=== PATIENT | female | born 1965 | race Caucasian/White ===

== ENCOUNTER 2018-05-12 04:13 | Inpatient (IN) | payer MEDICARE, MEDICAID ==
[~2018-05-12] VITALS: Ht 154.9 cm; Wt 58.3 kg
[~2018-05-12 04:13] MED LIST: LANTUS; LISINOPRIL; LOPID; NOVOLIN; SIMVASTATIN
[2018-05-12 05:22] LABS: HEMATOCRIT. 36.6 % (36.0-48.0); HEMOGLOBIN. 12.3 g/dL (12.0-16.0); MEAN CORPUSCULAR HEMOGLOBIN 31.7 pg (28.0-32.0); MEAN CORPUSCULAR VOLUME 94.8 fL (81.0-99.0); PLATELET 175 x1000/uL (130-400); RED BLOOD CELL COUNT 3.87 mill/uL (4.2-5.4); RED CELL DISTRIBUTION WIDTH 14.4 % (11.6-14.6)
[2018-05-12 05:23] LABS: INR 1.1; PROTHROMBIN TIME 10.7 sec (9.1-11.1)
[2018-05-12] MEDS ORDERED: VANCOMYCIN 1 G PREMIX 200 ML IV ONE (05:30)
[2018-05-12] MEDS ORDERED: PIPERACILLIN/TAZ 3.375G PREMIX 50 ML IV ONE (05:30)
[2018-05-12 05:34] LABS: CHLORIDE 96 mEq/L (98-107)
[2018-05-12 06:56] LABS: ATYPICAL LYMPHOCYTES 2; PLATELET ESTIMATE NORMAL
[2018-05-12 10:22] LABS: CLARITY URINE CLOUDY (CLEAR); COLOR URINE YELLOW (YELLOW); KETONES URINE NEGATIVE (NEGATIVE); LEUKOCYTE ESTERASE URINE 2+ (NEGATIVE); NITRITE URINE NEGATIVE (NEGATIVE); OCCULT BLOOD URINE 2+ (NEGATIVE); PH URINE 6.5 (4.5-8.0); PROTEIN URINE 3+ (NEGATIVE); SPECIFIC GRAVITY URINE 1.015 (1.005-1.030); UROBILINOGEN URINE 0.2 E.U./dL (0.2-1.0)
[2018-05-12] MEDS ORDERED: DOCUSATE SODIUM 100MG CAPSULE PO PRN (10:45)
[2018-05-12] MEDS ORDERED: ACETAMINOPHEN 325MG TABLET PO PRN (10:45)
[2018-05-12] MEDS ORDERED: ONDANSETRON HCL 4MG/2ML INJ IV PRN (10:45)
[2018-05-12] MEDS ORDERED: HYDROCODONE/ACETAMINOPHEN 5/325MG TABLET PO PRN (10:45)
[2018-05-12] MEDS ORDERED: IPRATROPIUM/ALBUTEROL 0.5-3(2.5)MG/3ML NEB INH PRN (10:45)
[2018-05-12 11:05] LABS: *BARBITURATES SCREEN URINE NEGATIVE (NEGATIVE); *BENZODIAZEPINES SCREEN URINE NEGATIVE (NEGATIVE); *COCAINE SCREEN URINE NEGATIVE (NEGATIVE); CANNABINOID URINE SCREEN NEGATIVE (NEGATIVE)
[2018-05-12 11:06] LABS: *AMPHETAMINES SCREEN URINE NEGATIVE (NEGATIVE); PHENCYCLIDINE URINE SCREEN NEGATIVE (NEGATIVE)
[2018-05-12 11:13] LABS: OPIATES URINE SCREEN NEGATIVE (NEGATIVE)
[2018-05-12 11:16] LABS: METHADONE URINE SCREEN NEGATIVE (NEGATIVE)
[2018-05-12 11:57] LABS: HEPATITIS B SURFACE ANTIGEN NEGATIVE
[2018-05-12 12:27] LABS: HEPATITIS A AB IGM NEGATIVE (NEGATIVE)
[2018-05-12] MEDS: CLONIDINE 0.1MG TABLET PO PRN (14:51)
[2018-05-12] MEDS: LORAZEPAM 0.5MG TABLET PO PRN ×2 (14:51→22:54)
[2018-05-12] MEDS ORDERED: AMLODIPINE 5MG TABLET PO NR (21:30)
[2018-05-13] VITALS (10 sets, daily range): BP systolic 134–181; BP diastolic 66–80
[2018-05-13] MEDS: CLONIDINE 0.1MG TABLET PO PRN ×2 (00:01→21:27)
[2018-05-13] MEDS ORDERED: GENTAMICIN 80MG PREMIX 100 ML IV NR ×2 (04:30→12:00)
[2018-05-13 06:55] LABS: HEMATOCRIT. 31.4 % (36.0-48.0); HEMOGLOBIN. 10.4 g/dL (12.0-16.0); MEAN CORPUSCULAR HEMOGLOBIN 31.2 pg (28.0-32.0); MEAN CORPUSCULAR VOLUME 93.9 fL (81.0-99.0); MEAN PLATELET VOLUME 9.2 fl (7.4-10.4); PLATELET 187 x1000/uL (130-400); RED BLOOD CELL COUNT 3.35 mill/uL (4.2-5.4); RED CELL DISTRIBUTION WIDTH 14.6 % (11.6-14.6)
[2018-05-13 07:36] LABS: PLATELET ESTIMATE NORMAL
[2018-05-13] MEDS ORDERED: DEXTROSE 50% WATER 50ML SYRINGE IV PRN (08:45)
[2018-05-13] MEDS: BLOOD SUGAR DIAGNOSTIC STRIP TEST SCH ×3 (11:50→21:14)
[2018-05-13] MEDS ORDERED: INSULIN LISPRO 100 UNITS/ML SUBCUT SCH (12:20)
[2018-05-13] MEDS: AMLODIPINE 5MG TABLET PO SCH (16:11)
[2018-05-13] MEDS: INSULIN LISPRO 100 UNITS/ML SUBCUT SCH ×2 (16:49→21:25)
[2018-05-13] MEDS: INSULIN GLARGINE UD 100 UNITS/ML SYR SUBCUT SCH (21:26)
[2018-05-14] VITALS (16 sets, daily range): BP systolic 112–180; BP diastolic 55–89
[2018-05-14] MEDS: INSULIN LISPRO 100 UNITS/ML SUBCUT SCH ×4 (06:33→20:36)
[2018-05-14] MEDS: BLOOD SUGAR DIAGNOSTIC STRIP TEST SCH ×4 (06:33→20:21)
[2018-05-14 07:30] LABS: HEMATOCRIT. 33.3 % (36.0-48.0); HEMOGLOBIN. 11.3 g/dL (12.0-16.0); MEAN CORPUSCULAR HEMOGLOBIN 31.5 pg (28.0-32.0); MEAN CORPUSCULAR VOLUME 92.5 fL (81.0-99.0); MEAN PLATELET VOLUME 9.3 fl (7.4-10.4); PLATELET 179 x1000/uL (130-400); RED CELL DISTRIBUTION WIDTH 14.7 % (11.6-14.6)
[2018-05-14 07:52] LABS: GENTAMICIN RANDOM 1.2 ug/mL
[2018-05-14] MEDS: INSULIN GLARGINE UD 100 UNITS/ML SYR SUBCUT SCH ×2 (09:14→20:42)
[2018-05-14] MEDS: AMLODIPINE 5MG TABLET PO SCH (09:14)
[2018-05-14 10:33] LABS: PLATELET ESTIMATE NORMAL
[2018-05-14] MEDS ORDERED: GENTAMICIN 80MG PREMIX 100 ML IV NR (20:00)
[2018-05-14] MEDS: CLONIDINE 0.1MG TABLET PO PRN (20:36)
== END 2018-05-14 22:52 | disposition home or self-care (01) | DRG 871 ==
LOC: ER 04:31 → EDBEDREQTM 05:46 → EDBEDREQ 05:46 → 3WST 05-13 05:38 → ENRESERV 05-13 07:00
PROVIDERS: ADMIT Internal Medicine; ATTEND Internal Medicine
PROC: 5A1D70Z Performance of Urinary Filtration, Intermittent, Less than 6 Hours Per Day (ICD-10-PCS; 2018-05-12)
PROC: 5A1D70Z Performance of Urinary Filtration, Intermittent, Less than 6 Hours Per Day (ICD-10-PCS; principal; 2018-05-13)
DX: A41.9 Sepsis, unspecified organism (principal); N18.6 End stage renal disease; G93.40 Encephalopathy, unspecified; I13.2 Hypertensive heart and chronic kidney disease with heart failure and with stage 5 chronic kidney disease, or end stage renal disease; I50.42 Chronic combined systolic (congestive) and diastolic (congestive) heart failure; E87.1 Hypo-osmolality and hyponatremia; E87.2 Acidosis; N39.0 Urinary tract infection, site not specified; E11.649 Type 2 diabetes mellitus with hypoglycemia without coma; E87.5 Hyperkalemia; D72.1 Eosinophilia; E78.5 Hyperlipidemia, unspecified; D64.9 Anemia, unspecified; E11.22 Type 2 diabetes mellitus with diabetic chronic kidney disease; E78.00 Pure hypercholesterolemia, unspecified; Z79.4 Long term (current) use of insulin; Z99.2 Dependence on renal dialysis; R74.0 Nonspecific elevation of levels of transaminase and lactic acid dehydrogenase [LDH]
CPT/HCPCS: 36415; 70551; 71045; 80048; 80061; 80076; 80170; 80305; 80307; 80329; 82140; 82962; 83036; 83605; 84145; 84443; 84484; 86705; 86709; 86803; 87340; 93005; 96365; 99285; J1580; J1815; J2543; J3370; J7050

== ENCOUNTER 2018-06-15 03:15 | Inpatient (IN) | payer MEDICARE, MEDICAID ==
[~2018-06-15] VITALS: Ht 154.9 cm; Wt 53.3 kg
[2018-06-15 02:24] VITALS: BP 182/79
[2018-06-15] MEDS ORDERED: DEXTROSE 50% WATER 50ML SYRINGE IV ONE (03:45)
[2018-06-15 03:55] LABS: EOSINOPHILS % 9.2 % (0.0-5.0); HEMATOCRIT. 33.5 % (36.0-48.0); HEMOGLOBIN. 11.7 g/dL (12.0-16.0); LYMPHOCYTES % 24.4 % (20.0-50.0); MEAN CORPUSCULAR HEMOGLOBIN 32.2 pg (28.0-32.0); MEAN CORPUSCULAR VOLUME 92.2 fL (81.0-99.0); MONOCYTES % 8.3 % (2.0-8.0); NEUTROPHILS % 57.1 % (40.0-76.0); PLATELET 238 x1000/uL (130-400); RED BLOOD CELL COUNT 3.64 mill/uL (4.2-5.4); RED CELL DISTRIBUTION WIDTH 13.9 % (11.6-14.6)
[2018-06-15 04:00] LABS: CHLORIDE 95 mEq/L (98-107)
[2018-06-15 04:03] LABS: INR 1.1; PROTHROMBIN TIME 10.6 sec (9.1-11.1)
[2018-06-15] MEDS ORDERED: DEXTROSE 5% WATER 1,000 ML IV SCH (05:13)
[2018-06-15] MEDS ORDERED: MAGNESIUM/ALUMINUM HYDROXIDE/SIMETHICONE 30ML UDC PO PRN (05:15)
[2018-06-15] MEDS ORDERED: ONDANSETRON HCL 4MG/2ML INJ IV PRN (05:15)
[2018-06-15] MEDS ORDERED: GUAIFENESIN 200MG/10ML SUGAR FREE UDC PO PRN (05:15)
[2018-06-15] MEDS ORDERED: CLONIDINE 0.1MG TABLET PO PRN (05:15)
[2018-06-15] MEDS ORDERED: DIPHENHYDRAMINE 50MG/ML VIAL IV PRN (05:15)
[2018-06-15] MEDS ORDERED: HYDROMORPHONE HCL/PF 2MG/ML CPJ IV PRN (05:15)
[2018-06-15] MEDS ORDERED: ACETAMINOPHEN 325MG TABLET PO PRN (05:15)
[2018-06-15] MEDS ORDERED: DOCUSATE SODIUM 100MG CAPSULE PO PRN (05:15)
[2018-06-15 08:17] VITALS: BP 182/79
[2018-06-15] MEDS: AMLODIPINE 10MG TABLET PO SCH (10:05)
[2018-06-15] MEDS ORDERED: DEXTROSE 50% WATER 50ML SYRINGE IV PRN ×2 (10:30→12:45)
[2018-06-15 12:00] VITALS: BP 174/76
[2018-06-15] MEDS: BLOOD SUGAR DIAGNOSTIC STRIP TEST SCH ×3 (12:36→21:00)
[2018-06-15] MEDS: INSULIN LISPRO 100 UNITS/ML SUBCUT SCH ×3 (13:38→21:54)
[2018-06-15 16:00] VITALS: BP 138/58
[2018-06-15] MEDS ORDERED: INSULIN LISPRO 100 UNITS/ML SUBCUT NR (18:25)
[2018-06-15 20:00] VITALS: BP 140/55
[2018-06-16] VITALS: BP 144/66
[2018-06-16 04:00] VITALS: BP 130/60
[2018-06-16 06:27] LABS: BASOPHILS % 0.6 % (0.0-2.0); EOSINOPHILS % 7.8 % (0.0-5.0); HEMATOCRIT. 30.2 % (36.0-48.0); HEMOGLOBIN. 10.3 g/dL (12.0-16.0); LYMPHOCYTES % 23.8 % (20.0-50.0); MEAN CORPUSCULAR HEMOGLOBIN 32.1 pg (28.0-32.0); MEAN CORPUSCULAR VOLUME 94.1 fL (81.0-99.0); MEAN PLATELET VOLUME 8.5 fl (7.4-10.4); NEUTROPHILS % 59.8 % (40.0-76.0); PLATELET 239 x1000/uL (130-400); RED BLOOD CELL COUNT 3.21 mill/uL (4.2-5.4); RED CELL DISTRIBUTION WIDTH 14.2 % (11.6-14.6)
[2018-06-16] MEDS: BLOOD SUGAR DIAGNOSTIC STRIP TEST SCH ×2 (06:32→12:20)
[2018-06-16 07:20] LABS: CHLORIDE 91 mEq/L (98-107)
[2018-06-16 07:34] LABS: PHOSPHORUS 7.7 mg/dL (2.5-4.9)
[2018-06-16] MEDS: INSULIN LISPRO 100 UNITS/ML SUBCUT SCH ×2 (08:03→12:49)
[2018-06-16] MEDS: AMLODIPINE 10MG TABLET PO SCH (08:39)
[2018-06-16 08:51] VITALS: BP 190/76
[2018-06-16 12:52] VITALS: BP 144/69
[2018-06-16 16:15] VITALS: BP 142/67
[2018-06-16 16:38] VITALS: BP 142/66
== END 2018-06-16 17:30 | disposition home or self-care (01) | DRG 637 ==
LOC: ER 03:15 → 6WST 05:05 → EDBEDREQ 05:08 → EDBEDREQTM 05:08 → EDBEDREQSVC 05:08 → ENRESERV 07:31
PROVIDERS: ADMIT Hospitalist; ATTEND Hospitalist
PROC: 5A1D70Z Performance of Urinary Filtration, Intermittent, Less than 6 Hours Per Day (ICD-10-PCS; principal; 2018-06-16)
DX: E11.649 Type 2 diabetes mellitus with hypoglycemia without coma (principal); I50.33 Acute on chronic diastolic (congestive) heart failure; G93.41 Metabolic encephalopathy; E87.1 Hypo-osmolality and hyponatremia; I13.2 Hypertensive heart and chronic kidney disease with heart failure and with stage 5 chronic kidney disease, or end stage renal disease; N18.6 End stage renal disease; E11.22 Type 2 diabetes mellitus with diabetic chronic kidney disease; D50.9 Iron deficiency anemia, unspecified; E87.5 Hyperkalemia; Z79.4 Long term (current) use of insulin; Z99.2 Dependence on renal dialysis
CPT/HCPCS: 36415; 71045; 82962; 83036; 84100; 84484; 93005; 96374; 99291; J1815; J7070

== ENCOUNTER 2018-08-21 14:15 | Emergency (ER) | payer MEDICARE, MEDICAID ==
[~2018-08-21] VITALS: Ht 154.9 cm; Wt 90.0 kg
[2018-08-21] MEDS ORDERED: ACETAMINOPHEN 325MG TABLET PO ONE (15:45)
[2018-08-21] MEDS ORDERED: LIDOCAINE HCL/PF 1% 10 MG/ML 5ML VIAL IJ ONE (16:45)
[2018-08-21 17:01] VITALS: BP 199/84
[2018-08-21] MEDS ORDERED: IBUPROFEN 800MG TABLET PO ONE (21:15)
== END 2018-08-21 17:25 | disposition home or self-care (01) ==
LOC: ER 14:15
DX: S81.012A Laceration without foreign body, left knee, initial encounter (principal); E11.22 Type 2 diabetes mellitus with diabetic chronic kidney disease; I12.0 Hypertensive chronic kidney disease with stage 5 chronic kidney disease or end stage renal disease; N18.6 End stage renal disease; E78.00 Pure hypercholesterolemia, unspecified; Z99.2 Dependence on renal dialysis; W10.0XXA Fall (on)(from) escalator, initial encounter; Y93.89 Activity, other specified; Y92.59 Other trade areas as the place of occurrence of the external cause
CPT/HCPCS: 12001; 73562; 99283; J3490

== ENCOUNTER 2019-05-12 10:30 | Inpatient (IN) | payer MEDICARE, MEDICAID ==
[~2019-05-12] VITALS: Ht 162.6 cm; Wt 62.6 kg
[2019-05-12] MEDS ORDERED: SODIUM BICARBONATE 8.4% 1 MEQ/ML 50ML SYR IV ONE (11:00)
[2019-05-12] MEDS ORDERED: CALCIUM GLUCONATE 100MG/ML 10ML VIAL IV ONE (11:00)
[2019-05-12] MEDS ORDERED: SODIUM CHLORIDE 0.9% 1000ML BAG (SEPSIS BOLUS) IV ONE (11:00)
[2019-05-12 11:06] LABS: BASOPHILS % 0.8 % (0.0-2.0); EOSINOPHILS % 7.1 % (0.0-5.0); HEMATOCRIT. 36.6 % (36.0-48.0); HEMOGLOBIN. 12.1 g/dL (12.0-16.0); LYMPHOCYTES % 17.8 % (20.0-50.0); MEAN CORPUSCULAR HEMOGLOBIN 29.5 pg (28.0-32.0); MEAN CORPUSCULAR VOLUME 89.5 fL (81.0-99.0); MEAN PLATELET VOLUME 9.7 fl (7.4-10.4); MONOCYTES % 6.3 % (2.0-8.0); PLATELET 87 x1000/uL (130-400); RED BLOOD CELL COUNT 4.09 mill/uL (4.2-5.4); RED CELL DISTRIBUTION WIDTH 16.5 % (11.6-14.6)
[2019-05-12 11:12] LABS: CHLORIDE 99 mEq/L (98-107)
[2019-05-12 11:13] LABS: INR 1.1
[2019-05-12] MEDS ORDERED: ATROPINE SULFATE 1MG/10ML SYR IV ONE (11:45)
[2019-05-12 12:02] LABS: BG BASE EXCESS -2.2 mmol/L (-2.0-2.0); BG CARBOXYHEMOGLOBIN 0.2 % (0.5-1.5); BG DEOXYHEMOGLOBIN 2.4 % (0.0-5.0); BG FRACTION INSPIRED OXYGEN 21; BG HCO3 ACT 23.5 mmol/L (22.0-26.0); BG METHEMOGLOBIN 0.3 % (0.0-1.5); BG OXYGEN SATURATION 97.6 % (92.0-98.5); BG OXYHEMOGLOBIN 97.1 % (94.0-97.0); BG PCO2 44.4 mmHg (35.0-45.0); BG PH 7.342 (7.350-7.450); BG PO2 111.9 mmHg (75.0-100.0); BG SAMPLE SITE RIGHT RADIAL; BG TOTAL HEMOGLOBIN 11.3 g/dL (12.0-18.0); BG VENT MODE ROOM AIR
[2019-05-12] MEDS ORDERED: DEXTROSE 50% WATER 50ML SYRINGE IV ONE (13:52)
[2019-05-12] MEDS ORDERED: DOPAMINE 400MG/250ML PREMIX 250 ML IV ONE (14:15)
[2019-05-12] MEDS ORDERED: BLOOD SUGAR DIAGNOSTIC STRIP TEST SCH (16:15)
[2019-05-12] MEDS ORDERED: ACETAMINOPHEN 650MG SUPP PR PRN (16:15)
[2019-05-12] MEDS ORDERED: PIPERACILLIN/TAZOBACTAM 2.25 G in DEXTROSE 5% WATER 50 ML IV SCH (16:15)
[2019-05-12] MEDS ORDERED: GUAIFENESIN 200MG/10ML SUGAR FREE UDC PO PRN (16:15)
[2019-05-12] MEDS ORDERED: ATROPINE SULFATE 1MG/10ML SYR IV PRN (16:15)
[2019-05-12] MEDS ORDERED: LORAZEPAM 0.5MG TABLET PO PRN (16:15)
[2019-05-12] MEDS ORDERED: HYDROCODONE/ACETAMINOPHEN 5/325MG TABLET PO PRN (16:15)
[2019-05-12] MEDS ORDERED: IPRATROPIUM/ALBUTEROL 0.5-3(2.5)MG/3ML NEB NEB PRN (16:15)
[2019-05-12] MEDS ORDERED: ONDANSETRON HCL 4MG/2ML INJ IV PRN (16:15)
[2019-05-12] MEDS ORDERED: ACETAMINOPHEN 325MG TABLET PO PRN (16:15)
[2019-05-12] MEDS ORDERED: DEXTROSE 50% WATER 50ML SYRINGE IV PRN (16:15)
[2019-05-12] MEDS ORDERED: DIPHENHYDRAMINE 50MG/ML VIAL IV PRN (16:15)
[2019-05-12] MEDS ORDERED: DOCUSATE SODIUM 100MG CAPSULE PO PRN (16:15)
[2019-05-12] MEDS ORDERED: MAGNESIUM/ALUMINUM HYDROXIDE/SIMETHICONE 30ML UDC PO PRN (16:15)
[2019-05-12 16:25] LABS: PHOSPHORUS 3.7 mg/dL (2.5-4.9)
[2019-05-12 16:28] LABS: T4 FREE 1.31 ng/dL (0.76-1.46)
[2019-05-12] MEDS: DEXT 5%/0.9% NACL 1,000 ML IV SCH ×2 (16:49→23:38)
[2019-05-12 18:05] LABS: HCG SCREEN NEGATIVE
[2019-05-12 21:00] VITALS: BP 152/76
[2019-05-12] MEDS ORDERED: NA PHOS,M-B/NA PHOS,DI-BA ENEMA 118ML PR PRN (21:00)
[2019-05-12 22:00] VITALS: BP 182/89
[2019-05-12] MEDS ORDERED: DOPAMINE 400MG/250ML PREMIX 250 ML IV PRN (22:30)
[2019-05-12] MEDS ORDERED: HYDRALAZINE 20MG/ML VIAL IV PRN (23:00)
[2019-05-12] MEDS: PIPERACILLIN/TAZOBACTAM 2.25 G in DEXTROSE 5% WATER 50 ML IV SCH (23:40)
[2019-05-12] MEDS: BLOOD SUGAR DIAGNOSTIC STRIP TEST SCH (23:40)
[2019-05-12 23:51] LABS: CREATINE KINASE 38 IU/L (26-192)
[2019-05-13] VITALS (12 sets, daily range): BP systolic 135–189; BP diastolic 62–90
[2019-05-13] MEDS ORDERED: VANCOMYCIN 1 G PREMIX 200 ML IV SCH (01:00)
[2019-05-13] MEDS: BLOOD SUGAR DIAGNOSTIC STRIP TEST SCH ×6 (02:00→12:00)
[2019-05-13 09:09] LABS: BASOPHILS % 0.6 % (0.0-2.0); CHLORIDE 100 mEq/L (98-107); EOSINOPHILS % 2.9 % (0.0-5.0); HEMATOCRIT. 31.7 % (36.0-48.0); HEMOGLOBIN. 10.6 g/dL (12.0-16.0); LYMPHOCYTES % 12.8 % (20.0-50.0); MEAN CORPUSCULAR HEMOGLOBIN 29.2 pg (28.0-32.0); MEAN PLATELET VOLUME 9.5 fl (7.4-10.4); NEUTROPHILS % 73.7 % (40.0-76.0); PLATELET 122 x1000/uL (130-400); RED BLOOD CELL COUNT 3.64 mill/uL (4.2-5.4); RED CELL DISTRIBUTION WIDTH 16.3 % (11.6-14.6)
[2019-05-13 09:17] LABS: LDL CHOLESTEROL 65 mg/dL (5-100)
[2019-05-13 09:18] LABS: CREATINE KINASE 34 IU/L (26-192); CREATINE KINASE MB FRACTION 1.6 ng/mL (0.5-3.6)
[2019-05-13 09:19] LABS: HDL CHOLESTEROL 43 mg/dL (40-59); T4 FREE 1.23 ng/dL (0.76-1.46)
[2019-05-13] MEDS: PIPERACILLIN/TAZOBACTAM 2.25 G in DEXTROSE 5% WATER 50 ML IV SCH (13:31)
[2019-05-13] MEDS ORDERED: DEXT 5%/0.9% NACL 1,000 ML IV ONE (16:30)
[2019-05-13] MEDS ORDERED: CLONIDINE 0.2MG TABLET PO PRN (17:00)
[2019-05-13] MEDS: ASPIRIN 81MG TABLET PO SCH (17:49)
[2019-05-13] MEDS ORDERED: BLOOD SUGAR DIAGNOSTIC STRIP TEST SCH ×2 (21:00)
[2019-05-13] MEDS ORDERED: FAMOTIDINE 20MG TABLET PO SCH (21:00)
[2019-05-13] MEDS ORDERED: VANCOMYCIN 500 MG PREMIX 100 ML IV SCH (21:00)
[2019-05-13] MEDS: INSULIN LISPRO 100 UNITS/ML SUBCUT SCH (21:31)
[2019-05-13] MEDS: HYDRALAZINE HCL 50MG TABLET PO SCH (21:31)
[2019-05-14] VITALS (8 sets, daily range): BP systolic 148–163; BP diastolic 69–82
[2019-05-14] MEDS: PIPERACILLIN/TAZOBACTAM 2.25 G in DEXTROSE 5% WATER 50 ML IV SCH ×2 (00:13→12:32)
[2019-05-14] MEDS: HYDRALAZINE HCL 50MG TABLET PO SCH ×2 (05:41→13:54)
[2019-05-14] MEDS: INSULIN LISPRO 100 UNITS/ML SUBCUT SCH (05:41)
[2019-05-14] MEDS: BLOOD SUGAR DIAGNOSTIC STRIP TEST SCH ×2 (05:42→12:25)
[2019-05-14 06:40] LABS: HEMATOCRIT 31.6 % (36.0-48.0); HEMOGLOBIN 10.7 g/dL (12.0-16.0); MEAN CORPUSCULAR HEMOGLOBIN 29.6 pg (28.0-32.0); PLATELET 120 x1000/uL (130-400); RED CELL DISTRIBUTION WIDTH 16.8 % (11.6-14.6)
[2019-05-14] MEDS: ASPIRIN 81MG TABLET PO SCH (08:23)
[2019-05-14] MEDS ORDERED: AMLODIPINE 5MG TABLET PO SCH (09:00)
[2019-05-14] MEDS ORDERED: HYDR-4135 MT (14:09)
[2019-05-14] MEDS ORDERED: AMLO10TA4 MT (14:09)
== END 2019-05-14 15:35 | disposition home or self-care (01) | DRG 871 ==
LOC: ER 10:30 → EDBEDREQSVC 13:27 → EDBEDREQ 13:27 → EDBEDREQTM 13:27 → 3WST 13:29 → EDBEDREQ 13:31 → EDBEDREQTM 13:31 → EDBEDREQSVC 13:31 → SUPCPDRO 16:08 → ENRESERV 19:58
PROVIDERS: ADMIT Internal Medicine; ATTEND Internal Medicine
PROC: 5A1D70Z Performance of Urinary Filtration, Intermittent, Less than 6 Hours Per Day (ICD-10-PCS; principal; 2019-05-13)
DX: A41.9 Sepsis, unspecified organism (principal); G93.41 Metabolic encephalopathy; N18.6 End stage renal disease; I50.33 Acute on chronic diastolic (congestive) heart failure; I13.2 Hypertensive heart and chronic kidney disease with heart failure and with stage 5 chronic kidney disease, or end stage renal disease; E87.1 Hypo-osmolality and hyponatremia; E11.22 Type 2 diabetes mellitus with diabetic chronic kidney disease; E11.649 Type 2 diabetes mellitus with hypoglycemia without coma; Z99.2 Dependence on renal dialysis; E78.5 Hyperlipidemia, unspecified; I27.20 Pulmonary hypertension, unspecified; E78.00 Pure hypercholesterolemia, unspecified; D69.6 Thrombocytopenia, unspecified; Z79.4 Long term (current) use of insulin; R94.31 Abnormal electrocardiogram [ECG] [EKG]; I08.1 Rheumatic disorders of both mitral and tricuspid valves; R74.8 Abnormal levels of other serum enzymes; Z79.899 Other long term (current) drug therapy
CPT/HCPCS: 36415; 36600; 71045; 76700; 80048; 80053; 80061; 80076; 82140; 82375; 82550; 82553; 82805; 82962; 83036; 83605; 83735; 84100; 84145; 84439; 84443; 84484; 84703; 85025; 85027; 93005; 93306; 93970; 97162; 99285; J0360; J0461; J0610; J1815; J2543; J3370; J3490; J7030; J7060